=== PATIENT | male | born 1990 | race Caucasian/White ===

== ENCOUNTER 2016-11-19 22:58 | Emergency (ER) | payer OTHER ==
[2016-11-19 23:07] VITALS: TEMP 98.2; BMI 40.6
[2016-11-20] MEDS ORDERED: KETOROLAC TROMETHAMINE 30 MG/1 ML VIAL IVPUSH ONE (00:07)
[2016-11-20] MEDS ORDERED: SODIUM CHLORIDE 1,000 ML IV ONE (00:07)
--- NOTE | 2016-11-20 00:07 | PDOC ---
History of Present Illness - History of Present Illness Initial Comments: 11/20/16 01:28 Patient is a 26 year old male with significant medical hx of migraines who is presenting to the ED with two weeks of intermittent RLQ pain that worsened today. Patient states last night he didnt feel himself with some nausea, chills , and lightheadedness but no fevers or vomiting. This morning his RLQ pain came back with more intensity than it had the past two weeks. He describes his pain as sharp that worsens when he sits up. However the patient denies any alleviating factors. The patient also endorses having a migraine today without any visual changes or photophobia. Patient denies any fevers, dysuria, hematuria , vomiting, diarrhea, or blood in stool. Denies any history of kidney stones. <Jackeline Hung - Last Filed: 11/20/16 01:28> <Jacinto Simpson - Last Filed: 11/23/16 07:52> - General Chief Complaint: Pain Stated Complaint: PAIN, ACUTE Time Seen by Provider: 11/19/16 23:31 Past History <Jackeline Hung - Last Filed: 11/20/16 01:28> - Past Medical History Other medical history: Pt denies - Psycho/Social/Smoking Cessation Hx Suicidal Ideation: No Smoking History: Never smoked Have you smoked in the past 12 months: No Information on smoking cessation initiated: No Hx Alcohol Use: No Drug/Substance Use Hx: No Substance Use Type: None <Jacinto Simpson - Last Filed: 11/23/16 07:52> - Past Medical History Allergies/Adverse Reactions: Allergies Allergy/AdvReac Type Severity Reaction Status Date / Time No Known Allergies Allergy Verified 11/19/16 23:01 Home Medications: Ambulatory Orders Ibuprofen 800 mg PO TID #30 tablet 11/20/16 Metoclopramide HCl [Reglan -] 10 mg PO TID #30 tablet 11/20/16 Review of Systems - Review of Systems Comments:: 11/20/16 01:29 CONSTITUTIONAL: Reported: Chills No reported: Fever, Diaphoresis, Generalized Weakness, Malaise, Loss of Appetite HEENT: No reported: Rhinorrhea, Nasal Congestion, Throat Pain, Throat Swelling, Difficulty Swallowing, Mouth Swelling, Ear Pain, Eye Pain, Visual Changes CARDIOVASCULAR: No reported: Chest Pain, Syncope, Palpitations, Irregular Heart Rate, Lightheadedness, Peripheral Edema RESPIRATORY: No reported: Cough, Shortness of Breath, SOB with Exertion, Orthopnea, Wheezing , Stridor, Hemoptysis GASTROINTESTINAL: Reported: RLQ pain, Nausea No reported: Abdominal Distension, Vomiting, Diarrhea, Constipation, Melena, Hematochezia GENITOURINARY: No reported: Dysuria, Frequency, Urgency, Hesitancy, Flank Pain, Genital Pain MUSCULOSKELETAL: No reported: Myalgia, Arthralgia, Joint Swelling, Back pain, Neck Pain SKIN: No reported: Rash, Itching, Pallor HEMEATOLOGIC/IMMUNOLOGIC: No reported: Easy Bleeding, Easy Bruising, Lymphadenopathy, Frequent infections ENDOCRINE: No reported: Unexplained Weight Gain, Unexplained Weight Loss, Heat Intolerance , Cold Intolerance NEUROLOGIC: Reported: Lightheadedness, Migraine No reported: Focal Weakness, Paresthesias, Vertigo, Unsteady Gait, Seizure, Mental Status Changes, Incontinence PSYCHIATRIC: No reported: Anxiety, Depression <Codi Hunga - Last Filed: 11/20/16 01:28> *Physical Exam - Vital Signs Last Vital Signs Temp Pulse Resp BP Pulse Ox 98.2 F 100 H 20 145/100 98 11/19/16 23:05 11/19/16 23:05 11/19/16 23:05 11/19/16 23:05 11/19/16 23:05 - Physical Exam Comments: 11/20/16 01:30 GENERAL: The patient is awake, alert, and fully oriented, Nontoxic - in no acute distress. HEAD: Normocephalic, atraumatic. EYES: extraocular movements intact, sclera anicteric, conjunctiva clear. ENT: Normal voice, Moist mucous membranes. NECK: Normal range of motion, supple LUNGS: Breath sounds equal, clear to auscultation bilaterally. No wheezes, no rhonchi, no rales. HEART: Regular rate and rhythm, without murmur, rub or gallop. ABDOMEN: Soft, mild RLQ tenderness, normoactive bowel sounds. No guarding, no rebound.No CVA tenderness EXTREMITIES: Normal range of motion, no edema. No clubbing or cyanosis. No cords , erythema, or tenderness. NEUROLOGICAL: No facial assymetry, Normal speech, PSYCH: Normal mood, normal affect. SKIN: Warm, Dry, normal turgor, <Jackeline Hung - Last Filed: 11/20/16 01:28> - Vital Signs Last Vital Signs Temp Pulse Resp BP Pulse Ox 98.2 F 100 H 20 145/100 98 11/19/16 23:05 11/19/16 23:05 11/19/16 23:05 11/19/16 23:05 11/19/16 23:05 <Jacinto Simpson - Last Filed: 11/23/16 07:52> ED Treatment Course - LABORATORY CBC & Chemistry Diagram: 11/20/16 00:24 11/20/16 00:24 - ADDITIONAL ORDERS Additional order review: Laboratory Results 11/20/16 00:27 Urine Color Yellow Urine Appearance Clear Urine pH 7.0 Urine Protein Negative Urine Glucose (UA) Negative Urine Ketones Negative Urine Blood Negative Urine Nitrite Negative Urine Bilirubin Negative Urine Urobilinogen Negative Ur Leukocyte Esterase Negative 11/20/16 00:24 RBC 5.22 MCV 84.6 MCHC 33.7 RDW 13.3 MPV 8.7 Neutrophils % 63.8 Lymphocytes % 24.7 Monocytes % 10.0 Eosinophils % 0.7 Basophils % 0.8 - Medications Given in the ED: ED Medications Discontinued Medications Generic Name Dose Route Start Last Admin Trade Name Freq PRN Reason Stop Dose Admin Sodium Chloride 1,000 mls @ 1,000 mls/hr 11/20/16 00:07 11/20/16 00:28 Normal Saline - IV 11/20/16 01:06 1,000 mls/hr .Q1H ONE Administration Ketorolac Tromethamine 30 mg 11/20/16 00:07 11/20/16 00:29 Toradol Injection - IVPUSH 11/20/16 00:08 30 mg ONCE ONE Administration <Jackeline Hung - Last Filed: 11/20/16 01:28> - LABORATORY CBC & Chemistry Diagram: 11/20/16 00:24 11/20/16 00:24 <Jacinto Simpson - Last Filed: 11/23/16 07:52> Medical Decision Making - Medical Decision Making 11/20/16 00:57 26y M no pmhx presents with intermittent and now persistent RLQ pain w/o associated fever/chills, n/v. on exam pt has tenderness to the rlQ. concern for possible appendicits vs. kidney stones no blood on ua will ck ct abd to r/o appendicits A portion of this note was documented by scribe services under my direction. I have reviewed the details of the note, within reason, and agree with the documentation with the following case summary and management plan written by me 11/20/16 01:57 pt signed out to dr. mak to fu with CT and dispo the pt <Jacinto Simpson - Last Filed: 11/23/16 07:52> *DC/Admit/Observation/Transfer - Attestations Scribe Attestion: 11/20/16 01:30 Documentation prepared by Jackeline Hung, acting as medical operations supervisor for Jacinto Simpson MD. <Jackeline Hung - Last Filed: 11/20/16 01:28> <Jacinto Simpson - Last Filed: 11/23/16 07:52> Diagnosis at time of Disposition: Abdominal pain - Discharge Dispostion Disposition: HOME - Prescriptions Prescriptions: Ibuprofen 800 mg PO TID #30 tablet Metoclopramide HCl [Reglan -] 10 mg PO TID #30 tablet - Referrals Referrals: Madi Barton MD [Staff Physician] - - Patient Instructions Printed Discharge Instructions: DI for Abdominal Pain-Adult Additional Instructions: take medication as directed. Follow up with the doctor referred to you for further evaluation.
[2016-11-20] MEDS ORDERED: KETOROLAC TROMETHAMINE 30 MG/1 ML VIAL ONE (00:23)
[2016-11-20 00:31] LABS: BASOPHIL 0.8 % (0-2.0); EOSINOPHIL 0.7 % (0-4.5); MCH 28.5 pg (25.7-33.7); MCHC 33.7 g/dl (32.0-35.9); MEAN CELL VOLUME 84.6 fl (80-96); MEAN PLT VOLUME 8.7 fl (7.5-11.1); NEUTROPHILS 63.8 % (42.8-82.8); PLATELET COUNT 222 K/MM3 (134-434); RDW 13.3 % (11.9-15.9); WHITE BLOOD COUNT 8.6 K/mm3 (4.0-10.0)
[2016-11-20 00:33] LABS: URINE APPEARANCE CLEAR; URINE BILIRUBIN NEGATIVE (NEGATIVE); URINE BLOOD NEGATIVE (NEGATIVE); URINE COLOR YELLOW; URINE GLUCOSE (UA) NEGATIVE (NEGATIVE); URINE KETONE NEGATIVE (NEGATIVE); URINE LEUK ESTERASE NEGATIVE (NEGATIVE); URINE NITRITE NEGATIVE (NEGATIVE); URINE PROTEIN NEGATIVE (NEGATIVE); URINE UROBILINOGEN NEGATIVE E.U./dl (0.2-1.0)
[2016-11-20 01:21] LABS: ALBUMIN 3.9 g/dl (3.4-5.0); ALK PHOS 78 U/L (45-117); ANION GAP 9 (8-16); BILIRUBIN,TOTAL 0.6 mg/dL (0.2-1.0); CALCIUM 8.9 mg/dL (8.5-10.1); CO2 29 mmol/L (21-32); CREATININE 1.1 mg/dL (0.7-1.3); GLUCOSE,RANDOM 87 mg/dL (74-106); SGOT/AST 28 U/L (15-37); SGPT/ALT 58 U/L (12-78); TOT PROT 7.6 g/dl (6.4-8.2)
--- NOTE | 2016-11-20 02:38 | PDOC ---
*Physical Exam - Vital Signs Last Vital Signs Temp Pulse Resp BP Pulse Ox 98.2 F 100 H 20 145/100 98 11/19/16 23:05 11/19/16 23:05 11/19/16 23:05 11/19/16 23:05 11/19/16 23:05 ED Treatment Course - LABORATORY CBC & Chemistry Diagram: 11/20/16 00:24 11/20/16 00:24 - ADDITIONAL ORDERS Additional order review: Laboratory Results 11/20/16 11/20/16 00:27 00:24 Sodium 139 Potassium 4.1 Chloride 101 Carbon Dioxide 29 Anion Gap 9 BUN 13 Creatinine 1.1 Creat Clearance w eGFR > 60 Random Glucose 87 Calcium 8.9 Total Bilirubin 0.6 AST 28 ALT 58 Alkaline Phosphatase 78 Total Protein 7.6 Albumin 3.9 Urine Color Yellow Urine Appearance Clear Urine pH 7.0 Urine Protein Negative Urine Glucose (UA) Negative Urine Ketones Negative Urine Blood Negative Urine Nitrite Negative Urine Bilirubin Negative Urine Urobilinogen Negative Ur Leukocyte Esterase Negative 11/20/16 00:24 RBC 5.22 MCV 84.6 MCHC 33.7 RDW 13.3 MPV 8.7 Neutrophils % 63.8 Lymphocytes % 24.7 Monocytes % 10.0 Eosinophils % 0.7 Basophils % 0.8 - Medications Given in the ED: ED Medications Discontinued Medications Generic Name Dose Route Start Last Admin Trade Name Daniel PRN Reason Stop Dose Admin Sodium Chloride 1,000 mls @ 1,000 mls/hr 11/20/16 00:07 11/20/16 00:28 Normal Saline - IV 11/20/16 01:06 1,000 mls/hr .Q1H ONE Administration Ketorolac Tromethamine 30 mg 11/20/16 00:07 11/20/16 00:29 Toradol Injection - IVPUSH 11/20/16 00:08 30 mg ONCE ONE Administration *DC/Admit/Observation/Transfer Diagnosis at time of Disposition: Abdominal pain Qualifiers: Abdominal location: right lower quadrant Qualified Code(s): R10.31 - Right lower quadrant pain - Discharge Dispostion Admit: No - Prescriptions Prescriptions: Ibuprofen 800 mg PO TID #30 tablet Metoclopramide HCl [Reglan -] 10 mg PO TID #30 tablet - Referrals Referrals: Madi Barton MD [Staff Physician] - - Patient Instructions Printed Discharge Instructions: DI for Abdominal Pain-Adult Additional Instructions: take medication as directed. Follow up with the doctor referred to you for further evaluation.
[2016-11-20 03:01] VITALS: BP 127/78; PULSE 86
== END 2016-11-20 02:55 | disposition home or self-care (01) ==
LOC: JER 22:58
PROC: 3E0333Z Introduction of Anti-inflammatory into Peripheral Vein, Percutaneous Approach (ICD-10-PCS; principal; 2016-11-19)
PROC: 3E0337Z Introduction of Electrolytic and Water Balance Substance into Peripheral Vein, Percutaneous Approach (ICD-10-PCS; 2016-11-19)
DX: R10.31 Right lower quadrant pain (principal)
CPT/HCPCS: 36415; 74177-TC; 80053; 81003; 85025; 99282-25

== ENCOUNTER 2017-06-06 06:44 | Emergency (ER) | payer SELFPAY ==
--- NOTE | 2017-06-06 07:07 | PDOC ---
History of Present Illness - General Stated Complaint: LBP/RADICULOPATHY Time Seen by Provider: 06/06/17 07:07 - History of Present Illness Initial Comments: 06/06/17 07:28 Mr. Pitts is a 26 yo male w/ no pmh who presents c/o a 2 day history of lower back pain. He reports this started when he was sitting down at work in the morning and occurred when he stood up. He localizes the pain to his right lower back and says that it is associated with a "shooting" pain down his right leg. He can recall no trauma or muscle strain. The pain has been more or less constant for the last two days. He reports that his last physical was approximately 6 months ago and that "everything was fine" at this time. He also reports that he has been urinating more than normal lately. The patient denies chest pain, shortness of breath, headache and dizziness. Denies fever, chills, nausea, vomit, diarrhea and constipation. Denies dysuria, urgency and hematuria. Allergies: NKDA Past History - Past Medical History Allergies/Adverse Reactions: Allergies Allergy/AdvReac Type Severity Reaction Status Date / Time No Known Allergies Allergy Verified 06/06/17 07:58 Home Medications: Ambulatory Orders Diazepam [Valium] 5 mg PO Q8H PRN #4 tablet MDD 3 tabs 06/06/17 NK [No Known Home Medication] 06/06/17 - Suicide/Smoking/Psychosocial Hx Smoking History: Never smoked Have you smoked in the past 12 months: No Hx Alcohol Use: No Drug/Substance Use Hx: No Substance Use Type: None Review of Systems - Review of Systems Comments:: 06/06/17 07:32 GENERAL/CONSTITUTIONAL: No fever or chills. No weakness. HEAD, EYES, EARS, NOSE AND THROAT: No change in vision. No ear pain or discharge. No sore throat. CARDIOVASCULAR: No chest pain or shortness of breath RESPIRATORY: No cough, wheezing, or hemoptysis. GASTROINTESTINAL: No nausea, vomiting, diarrhea or constipation. GENITOURINARY: +Increased urinary frequency for a few days. No dysuria, or change in urination. MUSCULOSKELETAL: +Lower back pain as described above. SKIN: No rash NEUROLOGIC: No headache, vertigo, loss of consciousness, or change in strength/ sensation. ENDOCRINE: No increased thirst. No abnormal weight change HEMATOLOGIC/LYMPHATIC: No anemia, easy bleeding, or history of blood clots. ALLERGIC/IMMUNOLOGIC: No hives or skin allergy. *Physical Exam - Physical Exam Comments: 06/06/17 07:33 GENERAL: Awake, alert, and fully oriented, in no acute distress HEAD: No signs of trauma, normocephalic, atraumatic EYES: PERRLA, EOMI, sclera anicteric, conjunctiva clear ENT: Auricles normal inspection, hearing grossly normal, nares patent, oropharynx clear without exudates. Moist mucosa NECK: Normal ROM, supple, no lymphadenopathy, JVD, or masses LUNGS: No distress, speaks full sentences, clear to auscultation bilaterally HEART: Regular rate and rhythm, normal S1 and S2, no murmurs, rubs or gallops, peripheral pulses normal and equal bilaterally. ABDOMEN: Soft, nontender, normoactive bowel sounds. No guarding, no rebound. No masses EXTREMITIES: +Pain with palpation of R lumbar spine just lateral to midline. Shooting pain described with palpation. NEUROLOGICAL: Cranial nerves II through XII grossly intact. Normal speech, normal gait, no focal sensorimotor deficits SKIN: Warm, Dry, normal turgor, no rashes or lesions noted. Medical Decision Making - Medical Decision Making 06/06/17 07:35 Mr. Pitts is a 26 yo male w/ no pmh who presents w/ symptoms c/w sciatica. Toradol / valium given for symptomatic relief. 06/06/17 08:26 Patient reports relief from symptoms and would like to go home. Discharging with follow-up to ortho clinic as needed. *DC/Admit/Observation/Transfer Diagnosis at time of Disposition: Back pain of lumbar region with sciatica - Discharge Dispostion Disposition: HOME - Referrals Referrals: Melquiades Heaton MD [Staff Physician] - Alan Crowe MD [Staff Physician] - - Patient Instructions Printed Discharge Instructions: DI for Back Pain With Sciatica Additional Instructions: Please return if any return of pain, fever, loss of sensation, or any other concerning symptoms. - Post Discharge Activity
--- NOTE | 2017-06-06 07:21 | PDOC ---
Attending Attestation - Resident Resident Name: Bi Arias - ED Attending Attestation I have performed the following: I have examined & evaluated the patient, The case was reviewed & discussed with the resident, I agree w/resident's findings & plan, Exceptions are as noted - HPI HPI: 06/06/17 12:31 Agree with residents HPI - Physicial Exam PE: 06/06/17 12:31 Agree with residents PE - Medical Decision Making 06/06/17 16:03 26 years old old with moderate low back discomfort after standing up. No red flags in patient's back pain history patient is well-appearing no apparent distress able to family comfortably in the emergency department after pain medications. He was provided with clinic follow-up and a short course of muscle relaxants Findings, the need for follow-up, strict return instructions discussed with patient.
[2017-06-06] MEDS ORDERED: diazePAM 5 MG TABLET PO ONE (07:23)
[2017-06-06] MEDS ORDERED: KETOROLAC TROMETHAMINE 30 MG/1 ML VIAL IM ONE (07:23)
[2017-06-06 07:56] VITALS: BP 148/85; PULSE 78; TEMP 98.5; BMI 40.4
[2017-06-06] MEDS ORDERED: KETOROLAC TROMETHAMINE 30 MG/1 ML VIAL ONE (08:04)
[2017-06-06] MEDS ORDERED: diazePAM 5 MG TABLET ONE (08:04)
== END 2017-06-06 08:38 | disposition home or self-care (01) ==
LOC: JER 06:44
PROC: 3E0233Z Introduction of Anti-inflammatory into Muscle, Percutaneous Approach (ICD-10-PCS; principal; 2017-06-06)
DX: M54.41 Lumbago with sciatica, right side (principal)
CPT/HCPCS: 82962; 99281-25

== ENCOUNTER 2017-08-23 19:33 | Emergency (ER) | payer SELFPAY ==
--- NOTE | 2017-08-23 19:59 | PDOC ---
Rapid Medical Evaluation Time Seen by Provider: 08/23/17 19:54 Medical Evaluation: Allergies Allergy/AdvReac Type Severity Reaction Status Date / Time No Known Allergies Allergy Verified 06/06/17 07:58 I have performed a brief in-person evaluation of this patient. The patient presents with a chief complaint of: RUQ pain today, worse after eating [employer] Pertinent physical exam findings: +murphys sign I have ordered the following: labs and gallbladder ultrasound The patient will proceed to the ED for further evaluation.
[2017-08-23 20:02] VITALS: BP 159/95; PULSE 95; TEMP 98.1; BMI 40.5
[2017-08-23 21:05] LABS: BASO % 0.7 % (0-2.0); EOS % 1.1 % (0-4.5); HEMOGLOBIN 14.9 GM/dL (11.7-16.9); LYMPH % 28.1 % (8-40); MCH 29.2 pg (25.7-33.7); MCHC 33.9 g/dl (32.0-35.9); MEAN PLT VOLUME 9.1 fl (7.5-11.1); MONO % 7.2 % (3.8-10.2); NEUT % 62.9 % (42.8-82.8); PLATELET COUNT 334 K/MM3 (134-434); RBC 5.11 M/mm3 (4.00-5.60); RDW 14.1 % (11.9-15.9); WHITE BLOOD COUNT 13.2 K/mm3 (4.0-10.0)
[2017-08-23 21:42] LABS: ALBUMIN 3.8 g/dl (3.4-5.0); ALK PHOS 91 U/L (45-117); ANION GAP 7 (8-16); BILIRUBIN,TOTAL 0.3 mg/dL (0.2-1.0); BLOOD UREA NITROGEN 10 mg/dL (7-18); CALCIUM 8.7 mg/dL (8.5-10.1); CHLORIDE 106 mmol/L (98-107); CO2 27 mmol/L (21-32); CREATININE 0.7 mg/dL (0.7-1.3); GLUCOSE,RANDOM 88 mg/dL (74-106); LIPASE 81 U/L (73-393); POTASSIUM 4.2 mmol/L (3.5-5.1); SGOT/AST 23 U/L (15-37); SGPT/ALT 56 U/L (12-78); SODIUM 140 mmol/L (136-145); TOT PROT 7.7 g/dl (6.4-8.2)
[2017-08-23] MEDS ORDERED: ONDANSETRON 4 MG/2 ML VIAL IVPUSH ONE (21:56)
[2017-08-23] MEDS ORDERED: morphine CARPU-JECT 4 MG/1 ML DISP.SYRIN IVPUSH ONE (21:58)
[2017-08-23] MEDS ORDERED: SODIUM CHLORIDE 1,000 ML IV STA (21:58)
[2017-08-23] MEDS ORDERED: FAMOTIDINE IV 20 MG/12 ML VIAL IVPB ONE (22:04)
--- NOTE | 2017-08-23 22:05 | PDOC ---
History of Present Illness - General Chief Complaint: Pain Stated Complaint: PAIN Time Seen by Provider: 08/23/17 19:54 History Source: Patient Exam Limitations: No Limitations - History of Present Illness Initial Comments: 08/23/17 21:59 Patient is a 27M with a history of DVT here today complaining of abdominal pain that started this morning. He describes the pain as intermittent and sharp that worsens after meals this morning. He endorses associated nausea. He denies vomiting, fevers, chills. He denies pain with urination. Last bowel movement yesterday. No prior bowel surgeries. Last ate at 4:30pm. Currently still in pain. Past History - Past Medical History Allergies/Adverse Reactions: Allergies Allergy/AdvReac Type Severity Reaction Status Date / Time No Known Allergies Allergy Verified 06/06/17 07:58 Home Medications: Ambulatory Orders NK [No Known Home Medication] 06/06/17 CVA: No COPD: No DVT: No Thyroid Disease: No - Suicide/Smoking/Psychosocial Hx Smoking History: Never smoked Have you smoked in the past 12 months: No Information on smoking cessation initiated: No Hx Alcohol Use: No Drug/Substance Use Hx: No Substance Use Type: None Review of Systems - Review of Systems Able to Perform ROS?: Yes Comments:: 08/23/17 22:02 GENERAL/CONSTITUTIONAL: No fever or chills. No weakness. HEAD, EYES, EARS, NOSE AND THROAT: No change in vision. No sore throat. CARDIOVASCULAR: No chest pain or shortness of breath RESPIRATORY: No cough, wheezing, or hemoptysis. GASTROINTESTINAL: Positive for nausea. Negative for vomiting, diarrhea or constipation. GENITOURINARY: No dysuria, frequency, or change in urination. MUSCULOSKELETAL: No joint or muscle swelling or pain. No neck or back pain. SKIN: No rash NEUROLOGIC: No headache, vertigo, loss of consciousness, or change in strength/ sensation. ENDOCRINE: No increased thirst. No abnormal weight change HEMATOLOGIC/LYMPHATIC: No anemia, easy bleeding. Positive for history of blood clots. ALLERGIC/IMMUNOLOGIC: No hives or skin allergy. *Physical Exam - Vital Signs Last Vital Signs Temp Pulse Resp BP Pulse Ox 98.1 F 95 H 19 159/95 98 08/23/17 19:57 08/23/17 19:57 08/23/17 19:57 08/23/17 19:57 08/23/17 19:57 - Physical Exam Comments: 08/23/17 22:03 GENERAL: Awake, alert, and fully oriented, in no acute distress HEAD: No signs of trauma, normocephalic, atraumatic EYES: PERRLA, EOMI, sclera anicteric, conjunctiva clear ENT: Auricles normal inspection, hearing grossly normal, nares patent, oropharynx clear without exudates. Moist mucosa NECK: Normal ROM, supple, no lymphadenopathy, JVD, or masses LUNGS: No distress, speaks full sentences, clear to auscultation bilaterally HEART: Regular rate and rhythm, normal S1 and S2, no murmurs, rubs or gallops, peripheral pulses normal and equal bilaterally. ABDOMEN: Soft, positive for RUQ tenderness, no guarding, no rebound. EXTREMITIES: Normal inspection, Normal range of motion, no edema. No clubbing or cyanosis. NEUROLOGICAL: Cranial nerves II through XII grossly intact. Normal speech, normal gait, no focal sensorimotor deficits SKIN: Warm, Dry, normal turgor, no rashes or lesions noted. ED Treatment Course - LABORATORY CBC & Chemistry Diagram: 08/23/17 20:50 08/23/17 20:50 - ADDITIONAL ORDERS Additional order review: Laboratory Results 08/23/17 20:50 Sodium 140 Potassium 4.2 Chloride 106 Carbon Dioxide 27 Anion Gap 7 L BUN 10 D Creatinine 0.7 D Creat Clearance w eGFR > 60 Random Glucose 88 Calcium 8.7 Total Bilirubin 0.3 D AST 23 ALT 56 Alkaline Phosphatase 91 Total Protein 7.7 Albumin 3.8 Lipase 81 08/23/17 20:50 RBC 5.11 MCV 86.0 MCHC 33.9 RDW 14.1 MPV 9.1 Neutrophils % 62.9 Lymphocytes % 28.1 Monocytes % 7.2 Eosinophils % 1.1 Basophils % 0.7 Medical Decision Making - Medical Decision Making 08/23/17 22:04 Patient is a 27M with history of DVT here today with RUQ pain. Differential diagnosis includes, but is not limited to: cholelithiasis, cholecystitis, gastritis. Abdominal labs already drawn. Bedside ultrasound limited quality, possible stone seen. Will get formal ultrasound. Will treat with fluids, pepcid , zofran, morphine. 08/23/17 22:36 Laboratory Tests 08/23/17 08/23/17 20:50 20:50 WBC 13.2 H D Hgb 14.9 Hct 44.0 Plt Count 334 D Creat Clearance w eGFR > 60 Lipase 81 CBC shows leukocytosis. CMP reassuring, lipase normal. Pending formal ultrasound. 08/23/17 23:22 UA negative. 08/23/17 23:51 US shows biliary sludge, no signs of acute cholecystitis or bile duct dilatation. Exam limited by patient habitus. Patient reports feeling better, says that he wants to go home. Given PCP and surgical follow up. Given return precautions. *DC/Admit/Observation/Transfer Diagnosis at time of Disposition: Abdominal pain - Discharge Dispostion Condition at time of disposition: Good Admit: No - Referrals - Patient Instructions Printed Discharge Instructions: DI for General Gallbladder Conditions Additional Instructions: Please return if you have any new, worsening or concerning symptoms, especially fever, vomiting and increased pain. Please call the primary care physician and general surgery tomorrow for further follow up for your condition. - Post Discharge Activity
--- NOTE | 2017-08-23 22:05 | PDOC ---
Attending Attestation - Resident Resident Name: Ran Rodriguez - ED Attending Attestation I have performed the following: I have examined & evaluated the patient, The case was reviewed & discussed with the resident, I agree w/resident's findings & plan, Exceptions are as noted - HPI HPI: 08/23/17 22:01 27-year-old male presents with upper abdominal pain with nausea <Nieves Tong - Last Filed: 08/23/17 22:01> - Physicial Exam PE: 08/23/17 22:21 agree with resident note. - Medical Decision Making Documentation prepared by Hanna Valdez, acting as medical device engineer for Nieves Tong MD. <Hanna Valdez - Last Filed: 08/23/17 22:27>
[2017-08-23] MEDS ORDERED: morphine SULFATE 4 MG/ML VIAL ONE (22:13)
[2017-08-23] MEDS ORDERED: FAMOTIDINE 20 MG/50 ML IVPB 20 MG/50 ML MG IVPB ONE (22:13)
[2017-08-23] MEDS ORDERED: ONDANSETRON 4 MG/2 ML VIAL ONE (22:13)
[2017-08-23 23:01] LABS: URINE APPEARANCE CLEAR; URINE BILIRUBIN NEGATIVE (<2.0 mg/dL); URINE BLOOD NEGATIVE (NEGATIVE); URINE COLOR YELLOW; URINE GLUCOSE (UA) NEGATIVE (NEGATIVE); URINE KETONE NEGATIVE (NEGATIVE); URINE LEUK ESTERASE NEGATIVE (NEGATIVE); URINE NITRITE NEGATIVE (NEGATIVE); URINE PROTEIN NEGATIVE (NEGATIVE); URINE UROBILINOGEN NEGATIVE mg/dL (0.2-1.0)
== END 2017-08-24 00:24 | disposition home or self-care (01) ==
LOC: JER 19:33
PROC: 3E033GC Introduction of Other Therapeutic Substance into Peripheral Vein, Percutaneous Approach (ICD-10-PCS; principal; 2017-08-23)
PROC: 3E033GC Introduction of Other Therapeutic Substance into Peripheral Vein, Percutaneous Approach (ICD-10-PCS; 2017-08-23)
PROC: 3E033NZ Introduction of Analgesics, Hypnotics, Sedatives into Peripheral Vein, Percutaneous Approach (ICD-10-PCS; 2017-08-23)
DX: R10.11 Right upper quadrant pain (principal); Z86.718 Personal history of other venous thrombosis and embolism
CPT/HCPCS: 36415; 76705-TC; 80053; 81003; 83690; 85025; 87086; 99283-25; J7030

== ENCOUNTER 2017-10-15 00:37 | Emergency (ER) | payer SELFPAY ==
[2017-10-15] MEDS ORDERED: IBUPROFEN 600 MG TABLET (FP) PO ONE ×2 (00:48→00:55)
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
[2017-10-15 00:52] VITALS: BP 142/76; PULSE 89; TEMP 98.2; BMI 39.4
--- NOTE | 2017-10-15 01:10 | PDOC ---
*Physical Exam - Vital Signs Last Vital Signs Temp Pulse Resp BP Pulse Ox 98.2 F 89 20 142/76 99 10/15/17 00:47 10/15/17 00:47 10/15/17 00:47 10/15/17 00:47 10/15/17 00:47 ED Treatment Course - Medications Given in the ED: ED Medications Discontinued Medications Generic Name Dose Route Start Last Admin Trade Name Daniel PRN Reason Stop Dose Admin Ibuprofen 600 mg 10/15/17 00:48 10/15/17 00:58 Motrin - PO 10/15/17 00:49 600 mg ONCE ONE Administration Medical Decision Making - Medical Decision Making 10/15/17 01:09 agree with care from LAURA Perry *DC/Admit/Observation/Transfer Diagnosis at time of Disposition: Contusion of right hand, initial encounter - Discharge Dispostion Disposition: HOME Condition at time of disposition: Fair - Referrals Referrals: Julian Zaidi MD [Staff Physician] - - Patient Instructions Additional Instructions: Take Tylenol or Motrin as needed for pain. Follow manufacturers instructions for appropriate dosage. Apply ice for 20 minutes and removed for at least 20 minutes before reapplying the ice. Whenever possible keep your hand elevated to decrease swelling. You've been given the number for an orthopedist. If symptoms do not resolve within the next 7 days call the orthopedist for further evaluation. Return to emergency department for any concerns. Thank you very much for choosing us to provide your emergent healthcare needs. - Post Discharge Activity
--- NOTE | 2017-10-15 08:14 | PDOC ---
Patient Follow-up (Call Back) - Post ED Follow - Up Condition at time of discharge: Fair Disposition at time of original discharge: HOME Reason for Call Back: Radiology - Disposition Rx Needed: No Additional Instructions/Notes: Radiologist called - (+) fracture of the base of the right metacarpal. Patient was not splinted. Attempted to call. No answer; voicemail not set up.
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
== END 2017-10-15 01:49 | disposition home or self-care (01) ==
LOC: JER 00:37
DX: S60.221A Contusion of right hand, initial encounter (principal); Y04.2XXA Assault by strike against or bumped into by another person, initial encounter; Y93.89 Activity, other specified; Y92.9 Unspecified place or not applicable
CPT/HCPCS: 73110-TC-RT-FY; 73130-TC-RT-FY; 99283-25

== ENCOUNTER 2017-10-18 10:43 | Emergency (ER) | payer SELFPAY ==
[2017-10-18 11:01] VITALS: BP 134/82; PULSE 76; TEMP 98.3; BMI 40.5
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
== END 2017-10-18 11:42 | disposition home or self-care (01) ==
LOC: JERFT 10:43
PROC: 2W3CX1Z Immobilization of Right Lower Arm using Splint (ICD-10-PCS; principal; 2017-10-18)
DX: S62.396D Other fracture of fifth metacarpal bone, right hand, subsequent encounter for fracture with routine healing (principal); Y04.2XXD Assault by strike against or bumped into by another person, subsequent encounter
CPT/HCPCS: 99282-25

== ENCOUNTER 2019-02-16 12:43 | Emergency (ER) | payer OTHER ==
[2019-02-16 12:55] VITALS: BP 125/75; PULSE 102; TEMP 98.2; BMI 41.3
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
[2019-02-16] MEDS ORDERED: KETOROLAC TROMETHAMINE 60 MG/2 ML VIAL IM ONE (14:48)
[2019-02-16] MEDS ORDERED: KETOROLAC TROMETHAMINE 60 MG/2 ML VIAL ONE (14:55)
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
== END 2019-02-16 15:30 | disposition home or self-care (01) ==
LOC: JER 12:43
PROC: 3E0233Z Introduction of Anti-inflammatory into Muscle, Percutaneous Approach (ICD-10-PCS; principal; 2019-02-16)
DX: M25.511 Pain in right shoulder (principal); R10.11 Right upper quadrant pain; R07.81 Pleurodynia; V43.62XA Car passenger injured in collision with other type car in traffic accident, initial encounter; Y92.414 Local residential or business street as the place of occurrence of the external cause; Y93.89 Activity, other specified; Y99.8 Other external cause status
CPT/HCPCS: 71250-TC; 73030-TC-RT-FY; 74176-TC; 99282-25

== ENCOUNTER 2020-09-02 01:40 | Emergency (ER) | payer OTHER ==
[2020-09-02 02:10] VITALS: BP 133/82; PULSE 100; TEMP 98.6; BMI 43.0
[2020-09-02] MEDS ORDERED: IBUPROFEN 600 MG TABLET (FP) PO ONE ×2 (03:28→03:44)
== END 2020-09-02 05:11 | disposition home or self-care (01) ==
LOC: JER 01:40
PROC: 0H98XZZ Drainage of Buttock Skin, External Approach (ICD-10-PCS; principal; 2020-09-02)
DX: L05.01 Pilonidal cyst with abscess (principal)
CPT/HCPCS: 99283-25

== ENCOUNTER 2021-02-07 22:18 | Emergency (ER) | payer OTHER ==
[2021-02-07 22:24] VITALS: BP 134/82; PULSE 93; TEMP 97; BMI 43.0
== END 2021-02-07 23:30 | disposition home or self-care (01) ==
LOC: JERFT 22:18
DX: L98.9 Disorder of the skin and subcutaneous tissue, unspecified (principal)
CPT/HCPCS: 99283-25

== ENCOUNTER 2021-03-07 02:19 | Emergency (ER) | payer OTHER ==
[2021-03-07 02:29] VITALS: BP 137/93; PULSE 114; TEMP 98.1; BMI 43.5
== END 2021-03-07 03:25 | disposition home or self-care (01) ==
LOC: JER 02:19
DX: R22.1 Localized swelling, mass and lump, neck (principal)
CPT/HCPCS: 99283-25

== ENCOUNTER 2021-05-12 21:35 | Emergency (ER) | payer OTHER ==
[2021-05-12 21:59] VITALS: BP 138/93; PULSE 97; TEMP 98.2; BMI 44.1
[2021-05-13 01:46] LABS: BASO % 0.5 % (0-2.0); EOS % 0.9 % (0-4.5); HEMATOCRIT 43.9 % (35.4-49); HEMOGLOBIN 15.1 GM/dL (11.7-16.9); LYMPH % 27.6 % (8-40); MCHC 34.3 g/dl (32.0-35.9); MEAN CELL VOLUME 84.5 fl (80-96); MEAN PLT VOLUME 9.1 fl (7.5-11.1); MONO % 6.5 % (3.8-10.2); NEUT % 64.5 % (42.8-82.8); PLATELET COUNT 326 10^3/uL (134-434); WHITE BLOOD COUNT 13.3 K/mm3 (4.0-10.0)
[2021-05-13 02:01] LABS: CHLORIDE 107 mmol/L (98-107); SODIUM 142 mmol/L (136-145)
[2021-05-13 02:04] LABS: ALBUMIN 3.6 g/dl (3.4-5.0); ANION GAP 8 MMOL/L (8-16); BLOOD UREA NITROGEN 11.4 mg/dL (7-18); CALCIUM 8.8 mg/dL (8.5-10.1); CO2 26 mmol/L (21-32); GLUCOSE,RANDOM 79 mg/dL (74-106); LIPASE 72 U/L (73-393)
[2021-05-13 02:07] LABS: CREATININE 0.8 mg/dL (0.55-1.3); SGOT/AST 24 U/L (15-37); SGPT/ALT 45 U/L (13-61)
[2021-05-13 02:09] LABS: BILIRUBIN,TOTAL 0.4 mg/dL (0.2-1); TOT PROT 8.2 g/dl (6.4-8.2)
[2021-05-13 02:11] LABS: ALK PHOS 84 U/L (45-117)
== END 2021-05-13 02:48 | disposition home or self-care (01) ==
LOC: JER 21:35
DX: R07.9 Chest pain, unspecified (principal)
CPT/HCPCS: 36415; 71046-TC-FY; 80053; 82550; 82553; 83690; 84484; 85025; 93005; 93010; 99285-25; C9803; U0003; U0005

== ENCOUNTER 2022-01-07 23:20 | Emergency (ER) | payer OTHER ==
[2022-01-08 00:16] VITALS: BP 133/89; PULSE 95; RESP 17; TEMP 98.4; BMI 45.5
[2022-01-08] MEDS ORDERED: ACETAMINOPHEN 1000 MG/100 ML BAG IVPB ONE (00:46)
[2022-01-08] MEDS ORDERED: DEXAMETHASONE SOD PHOSPHATE 10 MG/1 ML VIAL IVPUSH ONE (00:46)
[2022-01-08] MEDS ORDERED: DEXAMETHASONE SOD PHOSPHATE 10 MG/1 ML VIAL ONE (00:58)
[2022-01-08] MEDS ORDERED: ACETAMINOPHEN INJECTION 100 ML IVPB ONE (00:58)
[2022-01-08 01:22] LABS: BASO % 0.7 % (0-2.0); EOS % 1.1 % (0-4.5); HEMATOCRIT 43.1 % (35.4-49); HEMOGLOBIN 14.6 GM/dL (11.7-16.9); LYMPH % 27.2 % (8-40); MCH 28.7 pg (25.7-33.7); MCHC 33.9 g/dl (32.0-35.9); MEAN CELL VOLUME 84.7 fl (80-96); MEAN PLT VOLUME 8.3 fl (7.5-11.1); MONO % 7.2 % (3.8-10.2); NEUT % 63.8 % (42.8-82.8); PLATELET COUNT 341 10^3/uL (134-434); RBC 5.09 M/mm3 (4.00-5.60); RDW 14.2 % (11.9-15.9); WHITE BLOOD COUNT 13.7 K/mm3 (4.0-10.0)
[2022-01-08 01:53] LABS: BLOOD UREA NITROGEN 13.6 mg/dL (7-18); CALCIUM 9.6 mg/dL (8.5-10.1)
[2022-01-08 01:57] LABS: CREATININE 0.8 mg/dL (0.55-1.3)
[2022-01-08 03:30] LABS: THROAT:GRP A STREP NOT DETECTED (NOTDETECTED)
== END 2022-01-08 02:10 | disposition left against medical advice (07) ==
LOC: JER 23:20
DX: J02.0 Streptococcal pharyngitis (principal)
CPT/HCPCS: 0241U-QW; 36415; 80048; 85025; 87070; 87077; 87651; 99285-25; J1100

== ENCOUNTER 2022-01-09 14:14 | Emergency (ER) | payer OTHER ==
[2022-01-09 14:29] VITALS: BP 136/77; PULSE 81; RESP 18; TEMP 98.2; BMI 45.5
== END 2022-01-09 18:25 | disposition home or self-care (01) ==
LOC: JER 14:14
DX: J02.0 Streptococcal pharyngitis (principal)
CPT/HCPCS: 70491-TC; 99285-25; Q9967

== ENCOUNTER 2022-01-11 08:10 | Emergency (ER) | payer OTHER ==
[2022-01-11 08:31] VITALS: BP 128/76; PULSE 80; RESP 18; TEMP 97.6; BMI 45.5
[2022-01-11] MEDS ORDERED: DEXAMETHASONE 4 MG TABLET (FP) PO ONE (08:44)
[2022-01-11] MEDS ORDERED: KETOROLAC TROMETHAMINE 30 MG/1 ML VIAL IM ONE (08:46)
[2022-01-11] MEDS ORDERED: DEXAMETHASONE SOD PHOSPHATE 10 MG/1 ML VIAL ONE (08:46)
[2022-01-11] MEDS ORDERED: KETOROLAC TROMETHAMINE 30 MG/1 ML VIAL ONE (08:46)
== END 2022-01-11 09:31 | disposition home or self-care (01) ==
LOC: JERFT 08:10 → JER 08:10 → JERFT 09:31
PROC: 3E0233Z Introduction of Anti-inflammatory into Muscle, Percutaneous Approach (ICD-10-PCS; principal; 2022-01-11)
PROC: 3E0233Z Introduction of Anti-inflammatory into Muscle, Percutaneous Approach (ICD-10-PCS; 2022-01-11)
DX: J02.0 Streptococcal pharyngitis (principal)
CPT/HCPCS: 99284-25

== ENCOUNTER 2022-01-29 19:33 | Inpatient (IN) | payer OTHER ==
[2022-01-29] MEDS ORDERED: SODIUM CHLORIDE 1,000 ML IV STA (21:22)
[2022-01-29] MEDS ORDERED: KETOROLAC TROMETHAMINE 30 MG/1 ML VIAL IVPUSH ONE (21:22)
[2022-01-29 21:41] LABS: EPI CELLS 1 /uL (0-25.1); HYALINE CASTS 0 /uL (0-3.1); PH,URINE 6.5 (5.0-8.0); URINE APPEARANCE CLEAR; URINE BACTERIA >9,000 /uL (0-1359); URINE BILIRUBIN NEGATIVE (NEGATIVE); URINE COLOR YELLOW; URINE GLUCOSE (UA) NEGATIVE (NEGATIVE); URINE KETONE NEGATIVE (NEGATIVE); URINE LEUK ESTERASE 2+ (NEGATIVE); URINE NITRITE NEGATIVE (NEGATIVE); URINE PROTEIN NEGATIVE (NEGATIVE); URINE RBC 6 /uL (0-23.9); URINE WBC 252 /uL (0-25.8)
[2022-01-29] MEDS ORDERED: KETOROLAC TROMETHAMINE 30 MG/1 ML VIAL ONE (21:47)
[2022-01-29 22:09] LABS: BASO % 0.5 % (0-2.0); EOS % 0.4 % (0-4.5); HEMATOCRIT 40.7 % (35.4-49); HEMOGLOBIN 13.8 GM/dL (11.7-16.9); LYMPH % 19.2 % (8-40); MCH 28.6 pg (25.7-33.7); MCHC 33.9 g/dl (32.0-35.9); MEAN CELL VOLUME 84.3 fl (80-96); MEAN PLT VOLUME 8.4 fl (7.5-11.1); MONO % 8.4 % (3.8-10.2); NEUT % 71.5 % (42.8-82.8); PLATELET COUNT 289 10^3/uL (134-434); RBC 4.83 M/mm3 (4.00-5.60); RDW 14.4 % (11.9-15.9); WHITE BLOOD COUNT 19.9 K/mm3 (4.0-10.0)
[2022-01-29 22:29] LABS: BLOOD UREA NITROGEN 10.7 mg/dL (7-18); CALCIUM 9.3 mg/dL (8.5-10.1)
[2022-01-29 22:32] LABS: CREATININE 0.9 mg/dL (0.55-1.3)
[2022-01-29] MEDS ORDERED: CEFTRIAXONE 1,000 MG in DEXTROSE 5%-WATER - 50 ML IVPB ONE (23:02)
[2022-01-29] MEDS ORDERED: CEFTRIAXONE 1 GM/50 ML BAG ONE (23:28)
[2022-01-30] MEDS: ENOXAPARIN NA (PORCINE) 40 MG/0.4 ML DISP.SYRIN SQ SCH (10:33)
[2022-01-30] MEDS: SODIUM CHLORIDE 1,000 ML IV SCH (10:33)
[2022-01-30 11:23] VITALS: BMI 47.5
[2022-01-30] MEDS ORDERED: CEFTRIAXONE 1 GM in DEXTROSE 5%-WATER - 50 ML IVPB SCH (22:00)
[2022-01-30] MEDS ORDERED: cefTRIAXone SODIUM 1 GM VIAL ONE (22:17)
[2022-01-31] MEDS ORDERED: ACETAMINOPHEN 1000 MG/100 ML BAG IVPB ONE (01:42)
[2022-01-31] MEDS: SODIUM CHLORIDE 1,000 ML IV SCH (09:00)
[2022-01-31] MEDS: ENOXAPARIN NA (PORCINE) 40 MG/0.4 ML DISP.SYRIN SQ SCH (10:15)
[2022-01-31 10:47] LABS: HEMATOCRIT 41.2 % (35.4-49); HEMOGLOBIN 13.5 GM/dL (11.7-16.9); MCH 28.2 pg (25.7-33.7); MCHC 32.8 g/dl (32.0-35.9); MEAN CELL VOLUME 85.8 fl (80-96); PLATELET COUNT 296 10^3/uL (134-434); RDW 14.6 % (11.9-15.9); WHITE BLOOD COUNT 8.9 K/mm3 (4.0-10.0)
[2022-01-31 11:14] LABS: CALCIUM 8.7 mg/dL (8.5-10.1)
[2022-01-31 11:15] LABS: ALBUMIN 3.3 g/dl (3.4-5.0)
[2022-01-31 11:16] LABS: BLOOD UREA NITROGEN 12.7 mg/dL (7-18)
[2022-01-31 11:18] LABS: CREATININE 0.7 mg/dL (0.55-1.3)
[2022-01-31 11:19] LABS: TOT PROT 7.1 g/dl (6.4-8.2)
[2022-01-31 11:20] LABS: BILIRUBIN,TOTAL 0.4 mg/dL (0.2-1)
[2022-01-31 13:56] VITALS: BP 118/71; PULSE 80; RESP 20; TEMP 97.8
== END 2022-01-31 16:31 | disposition home or self-care (01) | DRG 463 ==
LOC: JER 19:33 → JERBED 23:26 → J8W 01-30 08:13
PROVIDERS: ADMIT Internal Medicine; ATTEND Internal Medicine
DX: N39.0 Urinary tract infection, site not specified (principal); Z68.42 Body mass index [BMI] 45.0-49.9, adult; E66.01 Morbid (severe) obesity due to excess calories; R73.03 Prediabetes; R00.0 Tachycardia, unspecified; E78.5 Hyperlipidemia, unspecified; B96.20 Unspecified Escherichia coli [E. coli] as the cause of diseases classified elsewhere
CPT/HCPCS: 36415; 76775-TC; 80048; 80053; 81003; 83605; 85025; 85027; 87040; 87086; 87186; 93005; 93010; 99285-25; C9803-CS; U0003; U0005